=== PATIENT | male | born 1955 | race African-American/Black ===

== ENCOUNTER 2016-10-15 06:45 | Day surgery (SDC) | payer BC ==
--- NOTE | ~2016-10-15 | EGD ---
EGD REPORT [facility] [address] [address] NAME: DMITRI BLAIR : 55 [place] [facility] [place] [id number] AGE: 60 ADM/REG DATE : 10/15/16 MR#: [id number] REPORT SERV DATE: 10/15/16 DICTATED BY: JAMES PRAKASH DATE: 10/15/16 REPORT STATUS : Draft [facility]ANS[facility]ED BY: [facility] DATE: 10/15/16 [facility] Patient Name: Dmitri Blair. Date of : 1955 Attending MD: JAMES PRAKASH MD Procedure Date No Time: 10/15/2016 Procedure: Colonoscopy Indications: Personal history of colonic polyps, Last colonoscopy: June 2011 Referring MD: MK MERLOS III Medicines: Propofol per Anesthesia Complications: No immediate complications. Estimated blood loss: None. Procedure: Pre-Anesthesia Assessment: - After reviewing the risks and benefits, the patient was deemed in satisfactory condition to undergo the procedure. - Prior to the procedure, a History and Physical was performed, and patient medications and allergies were reviewed. The patient's tolerance of previous anesthesia was also reviewed. The risks and benefits of the procedure and the sedation options and risks were discussed with the patient. All questions were answered, and informed consent was obtained. Prior Anticoagulants: The patient has taken no previous anticoagulant or antiplatelet agents. ASA Grade Assessment: III - A patient with severe systemic disease. After reviewing the risks and benefits, the patient was deemed in satisfactory condition to undergo the procedure. After I obtained informed consent, the scope was passed under direct vision. Throughout the procedure, the patient's blood pressure, pulse, and oxygen saturations were monitored continuously. The CF [id number] was introduced through the anus and advanced to the cecum, identified by appendiceal orifice and ileocecal valve. The colonoscopy was performed without difficulty. The appendiceal orifice was photographed. The patient tolerated the procedure well. The quality of the bowel preparation was good. The bowel preparation used was polyethylene glycol (PEG). Scope withdrawal time was greater than 10 minutes. Findings: The perianal and digital rectal examinations were normal. Pertinent negatives include normal sphincter tone. Non-bleeding internal hemorrhoids were found during retroflexion and EGD REPORT [address] [address] NAME: DMITRI BLAIR : 55 [place] [facility] [place] [id number] AGE: 60 ADM/REG DATE : 10/15/16 MR#: [id number] REPORT SERV DATE: 10/15/16 DICTATED BY: JAMES PRAKASH DATE: 10/15/16 REPORT STATUS : Draft TRANSCRIBED BY: [email or web address] DATE: 10/15/16 were small and Grade I (internal hemorrhoids that do not prolapse). A few medium-mouthed diverticula were found in the sigmoid colon, in the descending colon and in the distal transverse colon. A sessile polyp was found in the transverse colon. The polyp was diminutive in size. The polyp was removed with a cold biopsy forceps. Resection and retrieval were complete. Estimated blood loss: none. The exam was otherwise without abnormality. Impression: - Non-bleeding internal hemorrhoids. - Mild diverticulosis in the sigmoid colon, in the descending colon and in the distal transverse colon. - One diminutive polyp in the transverse colon. Resected and retrieved. - The examination was otherwise normal. Recommendation: - Discharge patient to home (ambulatory). - High fiber diet indefinitely. - Continue present medications. - Await pathology results. - Repeat colonoscopy in 5 years for surveillance. - Patient has a contact number available for emergencies. The signs and symptoms of potential delayed complications were discussed with the patient. Return to normal activities tomorrow. Written discharge instructions were provided to the patient. Procedure Code(s): --- Professional --- 69839, Colonoscopy, flexible, proximal to splenic flexure; with biopsy, single or multiple Diagnosis Code(s): --- Professional --- K64.0, First degree hemorrhoids K57.30, Diverticulosis of large intestine without perforation or abscess without bleeding D12.3, Benign neoplasm of transverse colon Z86.010, Personal history of colonic polyps CPT copyright 2013 [employer]. All rights reserved. The codes documented in this report are preliminary and upon rug cleaner hand review may be revised to meet current compliance requirements. JAMES PRAKASH MD 10/15/2016 8:39 AM This report has been signed electronically. EGD REPORT [facility] [address] [address] NAME: DMITRI BLAIR : 55 [place] [facility] [place] [id number] AGE: 60 ADM/REG DATE : 10/15/16 MR#: [id number] REPORT SERV DATE: 10/15/16 DICTATED BY: JAMES PRAKASH DATE: 10/15/16 REPORT STATUS : Draft TRANSCRIBED BY: [email or web address] DATE: 10/15/16 Number of Addenda: 0 Note Initiated On: 10/15/2016 8:10 AM Scope Withdrawal Time 0 hours 10 minutes 55 seconds [address] [address]
[~2016-10-15 06:45] MED LIST: CATAFLAM50 MG PO; CYANO1000T PO; EXCEDRINTB PO; FISH-EPA1000 MG PO; GLUCPH PO; HYDROCHLOROT12.5 MG PO; HYT5 PO; LORTAB 5 PO; MULTIPLE VIT PO; NORV10 PO; ST JOHN WORT; ST JOHN WORT OR; VITE1000 PO; VOLT50 PO; ZESTRIL40 MG PO; ZOCOR10 PO
== END 2016-10-15 23:59 | disposition home or self-care (01) ==
LOC: DMU 06:45
PROVIDERS: Internal Medicine Gastroenterology
PROC: 0DBL8ZZ Excision of Transverse Colon, Via Natural or Artificial Opening Endoscopic (ICD-10-PCS; principal; 2016-10-15 08:15)
DX: K63.5 Polyp of colon (principal); K64.0 First degree hemorrhoids; K57.30 Diverticulosis of large intestine without perforation or abscess without bleeding; I10 Essential (primary) hypertension; E78.00 Pure hypercholesterolemia, unspecified; M19.90 Unspecified osteoarthritis, unspecified site; J45.909 Unspecified asthma, uncomplicated; L40.9 Psoriasis, unspecified; E11.9 Type 2 diabetes mellitus without complications; H35.30 Unspecified macular degeneration; Z88.5 Allergy status to narcotic agent; Z86.010 Personal history of colon polyps; Z98.890 Other specified postprocedural states; Z96.643 Presence of artificial hip joint, bilateral; Z96.659 Presence of unspecified artificial knee joint; Z79.899 Other long term (current) drug therapy; Z79.84 Long term (current) use of oral hypoglycemic drugs
CPT/HCPCS: 82962; 88305